=== PATIENT | female | born 1950 | race African-American/Black ===

== ENCOUNTER 2019-06-29 14:20 | Inpatient (IN) ==
[2019-06-29] MEDS ORDERED: ALBUTEROL 2.5 MG/3 ML NEB RESP TX STA (15:10)
[2019-06-29 15:31] LABS: Basophils % 0.4 % (0.0-0.8); Eosinophils % 0.1 % (0.00-10.9); Hematocrit 33.9 VOL% (35.7-47.0); Hemoglobin 10.9 GM/DL (12.0-16.0); Immature Granulocytes % 0.4 %; Immature Granulocytes Absolute 0.03 #; Lymphocytes % 23.9 % (21.3-54.2); Mean Corpuscular HGB Conc 32.2 GM/DL (32-36); Mean Corpuscular Volume 88.7 FL (87-102); Mean Platelet Volume 12.8 FL (9.6-12.0); Monocytes % 8.3 % (1.7-12.7); NRBC # 0.02 10*3/uL; Neutrophils % 66.9 % (38.7-73.9); Platelet Count 243 T/CUMM (130-400); Red Blood Count 3.82 MC/CUMM (3.8-5.5); White Blood Count 8.2 T/CUMM (4-12)
[2019-06-29 15:56] LABS: Albumin 3.1 G/DL (3.4-5.0); Bilirubin,Total 0.4 MG/DL (0.2-1.0); Calcium 9.1 MG/DL (8.5-10.1); Osmolality,Calculated 285.8 MOS/KG (273-304); Total Protein 7.1 G/DL (6.4-8.3)
[2019-06-29] MEDS ORDERED: FUROSEMIDE 40 MG/4 ML VIAL IV STA (16:15)
[2019-06-29] MEDS ORDERED: cefTRIAXone 1,000 MG in SODIUM CHLORIDE 0.9% 100 ML IV STA (16:15)
[2019-06-29] MEDS ORDERED: POTASSIUM CHLORIDE 20 MEQ TABLET PO STA (16:17)
[2019-06-29 16:43] LABS: Troponin I 0.071 NG/ML (0.00-0.045)
[2019-06-29] MEDS ORDERED: GLUCAGON 1 MG VIAL IM PRN (17:25)
[2019-06-29] MEDS ORDERED: DOCUSATE SODIUM 100 MG CAPSULE PO PRN (17:25)
[2019-06-29] MEDS ORDERED: guaiFENesin/DM ER 600-30 MG TABLET PO PRN (17:25)
[2019-06-29] MEDS ORDERED: MORPHINE 4 MG/1 ML VIAL IV PRN (17:25)
[2019-06-29] MEDS ORDERED: DEXTROSE 10% 25 GM/250 ML BAG IV PRN (17:25)
[2019-06-29] MEDS ORDERED: LACTULOSE 20 GM/30 ML UDCUP PO PRN (17:25)
[2019-06-29] MEDS ORDERED: MAGNESIUM SULF RIDER 2 GM in PREMIX 1 EACH IV PRN (17:33)
[2019-06-29] MEDS ORDERED: MAGNESIUM SULF RIDER 4 GM in PREMIX 1 EACH IV PRN (17:33)
[2019-06-29] MEDS: ENOXAPARIN 40 MG/0.4 ML SYRINGE SUBCUT SCH (17:50)
[2019-06-29] MEDS ORDERED: AZITHROMYCIN INJ 500 MG in SODIUM CHLORIDE 0.9% 250 ML IV STA (18:05)
[2019-06-29] MEDS ORDERED: AZITHROMYCIN 500 MG VIAL IV ONE (18:14)
[2019-06-29 18:35] LABS: Troponin I 0.081 NG/ML (0.00-0.045)
[2019-06-29] MEDS ORDERED: PNEUMOCOCCAL VACCINE (13 VALENT) 0.5 ML SYRINGE IM ONE (20:00)
[2019-06-29 21:48] LABS: Troponin I 0.094 NG/ML (0.00-0.045)
[2019-06-29] MEDS: INSULIN LISPRO 100 UNIT/ML SUBCUT SCH (22:15)
[2019-06-30 00:06] LABS: Troponin I 0.099 NG/ML (0.00-0.045)
[2019-06-30] MEDS ORDERED: oxyCODONE IR 5 MG TABLET PO ONE (01:00)
[2019-06-30 05:22] LABS: Basophils % 0.5 % (0.0-0.8); Eosinophils % 0.4 % (0.00-10.9); Hematocrit 35.6 VOL% (35.7-47.0); Immature Granulocytes % 0.3 %; Immature Granulocytes Absolute 0.02 #; Lymphocytes # 3.2 10*3/uL (1.4-4.0); Mean Corpuscular HGB Conc 30.9 GM/DL (32-36); Mean Corpuscular Volume 90.8 FL (87-102); Mean Platelet Volume 13.1 FL (9.6-12.0); Monocytes % 11.3 % (1.7-12.7); NRBC # 0.02 10*3/uL; Neutrophils % 44.5 % (38.7-73.9); Platelet Count 258 T/CUMM (130-400); Red Blood Count 3.92 MC/CUMM (3.8-5.5); Red Cell Distribution Width 16.1 % (9.3-17.3); White Blood Count 7.5 T/CUMM (4-12)
[2019-06-30 05:51] LABS: Bilirubin,Total 0.4 MG/DL (0.2-1.0); Calcium 9.1 MG/DL (8.5-10.1); Osmolality,Calculated 279.3 MOS/KG (273-304); Thyroid Stimulating Hormone 6.85 uIU/ml (0.358-3.74); Total Protein 7.1 G/DL (6.4-8.3)
[2019-06-30] MEDS: POTASSIUM CHLORIDE 20 MEQ TABLET PO PRN ×3 (06:40→18:16)
[2019-06-30] MEDS ORDERED: AZITHROMYCIN INJ 500 MG in SODIUM CHLORIDE 0.9% 250 ML IV SCH (09:00)
[2019-06-30] MEDS: LOSARTAN/HCTZ 50-12.5 MG TABLET PO SCH (09:05)
[2019-06-30] MEDS: ASPIRIN CHEW 81 MG TABLET PO SCH (09:05)
[2019-06-30] MEDS: INSULIN LISPRO 100 UNIT/ML SUBCUT SCH ×4 (09:06→21:51)
[2019-06-30] MEDS: ROSUVASTATIN 10 MG TABLET PO SCH (09:06)
[2019-06-30] MEDS: FUROSEMIDE 40 MG/4 ML VIAL IV SCH ×2 (09:06→16:12)
[2019-06-30] MEDS: PANTOPRAZOLE 40 MG TABLET PO SCH (09:06)
[2019-06-30] MEDS: METOPROLOL TARTRATE 25 MG TABLET PO SCH ×2 (11:27→21:49)
[2019-06-30] MEDS ORDERED: hydrALAZINE 20 MG/1 ML VIAL IV PRN (12:16)
[2019-06-30] MEDS: ONDANSETRON 4 MG/2 ML VIAL IV PRN ×2 (12:35→19:19)
[2019-06-30] MEDS ORDERED: TEMAZEPAM 15 MG CAPSULE PO PRN (16:23)
[2019-06-30] MEDS: oxyCODONE IR 5 MG TABLET PO PRN (17:12)
[2019-06-30] MEDS ORDERED: cefTRIAXone 1,000 MG in SYRINGE 1 EACH IV SCH (18:00)
[2019-06-30] MEDS: ENOXAPARIN 40 MG/0.4 ML SYRINGE SUBCUT SCH (21:49)
[2019-07-01] MEDS: oxyCODONE IR 5 MG TABLET PO PRN (04:39)
[2019-07-01 05:23] LABS: Basophils % 0.2 % (0.0-0.8); Eosinophils % 0.1 % (0.00-10.9); Hematocrit 41.2 VOL% (35.7-47.0); Hemoglobin 13.1 GM/DL (12.0-16.0); Immature Granulocytes % 0.2 %; Immature Granulocytes Absolute 0.02 #; Lymphocytes # 2.5 10*3/uL (1.4-4.0); Lymphocytes % 28.7 % (21.3-54.2); Mean Corpuscular HGB Conc 31.8 GM/DL (32-36); Mean Platelet Volume 12.8 FL (9.6-12.0); Monocytes % 9.7 % (1.7-12.7); Neutrophils % 61.1 % (38.7-73.9); Platelet Count 288 T/CUMM (130-400); Red Blood Count 4.63 MC/CUMM (3.8-5.5); Red Cell Distribution Width 15.5 % (9.3-17.3); White Blood Count 8.7 T/CUMM (4-12)
[2019-07-01 05:54] LABS: Albumin 3.5 G/DL (3.4-5.0); Osmolality,Calculated 281.4 MOS/KG (273-304); Total Protein 8.3 G/DL (6.4-8.3)
[2019-07-01] MEDS ORDERED: METOPROLOL TARTRATE 50 MG TABLET PO SCH (09:00)
[2019-07-01] MEDS ORDERED: AZITHROMYCIN 250 MG TABLET PO SCH (09:00)
[2019-07-01] MEDS: ONDANSETRON 4 MG/2 ML VIAL IV PRN (09:06)
[2019-07-01] MEDS: FUROSEMIDE 40 MG/4 ML VIAL IV SCH (09:08)
[2019-07-01] MEDS: ASPIRIN CHEW 81 MG TABLET PO SCH (09:10)
[2019-07-01] MEDS: ROSUVASTATIN 10 MG TABLET PO SCH (09:11)
[2019-07-01] MEDS: LOSARTAN/HCTZ 50-12.5 MG TABLET PO SCH (09:11)
[2019-07-01] MEDS: PANTOPRAZOLE 40 MG TABLET PO SCH (09:11)
[2019-07-01] MEDS: INSULIN LISPRO 100 UNIT/ML SUBCUT SCH ×2 (09:15→12:30)
[2019-07-01 12:18] VITALS: BP 168/76
[2019-07-02] MEDS ORDERED: PANTOPRAZOLE 40 MG TABLET PO SCH (06:30)
[2019-07-02 08:01] LABS: Total Protein (Chem) 8.1 G/DL (6.4-8.3)
[2019-07-02 08:03] LABS: Albumin (SPE) 4.9 G/DL (3.2-5.3); Albumin (SPE) Rel % 60.4 %; Alpha 1 (SPE) 0.3 G/DL (0.1-0.4); Alpha 1 (SPE) Rel % 3.2 %; Alpha 2 (SPE) Rel % 12.4 %; Beta (SPE) 0.8 G/DL (0.5-1.1); Beta (SPE) Rel % 10.1 %; Gamma (SPE) 1.1 G/DL (0.7-1.7); Gamma (SPE) Rel % 13.9 %
== END 2019-07-01 14:32 | disposition home or self-care (01) | DRG 291 ==
LOC: N.ED 14:20 → N.EDINP 17:25 → SUPCPDRO 17:25 → N.2E 18:45
PROVIDERS: ADMIT Internal Medicine Geriatric Medicine; ATTEND Internal Medicine Geriatric Medicine